=== PATIENT | male | born 1940 | race Caucasian/White ===

== ENCOUNTER → 2016-12-15 | Outpatient (CLI) | payer OTHER ==
[~2016-12-15] MED LIST: ACCUPRIL PO; ACTOS PO; AMARYL PO; ASPIRIN PO; BYETTA10 MCG/0.0 INJ; MAXZIDE 75/50 T1 TAB PO; METFORMIN PO; NEXIUM PO; PLAVIX PO; TOPROL XL PO; ZETIA PO
--- NOTE | ~2016-12-15 | CT4 ---
[facility] A Service of [facility] RADIOLOGY TEXT RESULTS PATIENT: TESSY JOSEPH SR LOCATION: [facility] : 40 UNIT #: [id number] AGE: [address]: Miguel A Bobo MD SEX: M ORDER DR: [id number] [facility] [address]. [place], [place] [address] [id number] O MR#: [id number] [facility] #: [id number] NAME: TESSY JOSEPH : 1940 SEX: M STUDY DATE/TIME: 12/15/2016 9:46 UNIT: [facility] ROOM: STUDY DESCRIPTION: CT Abd and Pelv Wo Cont Attending Physician: Miguel A Bobo M.D. Referring Physician: Miguel A Bobo M.D. Ordering Physician: Miguel A Bobo M.D. Primary Care Physician: Miguel A Bobo M.D. MEDICAL IMAGING REPORT This report is preliminary unless electronic signature is present EXAM CT abdomen and pelvis without contrast INDICATIONS Gross hematuria today. TECHNIQUE CT abdomen and pelvis was performed without contrast. Coronal and sagittal reformatted images were obtained. This CT exam was performed with one or more of the following radiation dose reduction techniques: automatic exposure control, adjustment of mA and/or kV according to patient size, and iterative reconstruction. COMPARISON STUDIES 11/08/2011. FINDINGS Lung bases are clear. There has been a previous cholecystectomy. The liver is unremarkable. The spleen is unremarkable. Stable cyst in the left kidney. The right kidney is unremarkable. No renal stone or hydronephrosis. Stable adrenal gland thickening bilaterally with nodularity. These likely reflect adenomas. The pancreas is unremarkable. PELVIS: There is some mild bladder wall thickening on the left, however this is unchanged since 2012 and may actually be decreased. No bladder stones. Bilateral fat-containing inguinal hernias. The colon is unremarkable. Normal appendix. There is no free fluid. Bone windows are unremarkable. IMPRESSION 1. No evidence of renal stone or hydronephrosis. [facility] A Service of [facility] RADIOLOGY TEXT RESULTS PATIENT: TESSY JOSEPH SR LOCATION: [facility] #: [id number] : 40 UNIT #: [id number] AGE: [address]: Miguel A Bobo MD SEX: M ORDER DR: 2. There is some very mild thickening along the left side of the urinary bladder, however this is unchanged be dating back to 2011. 3. Cholecystectomy. Findings were discussed with Dr. Bobo at the time f the dictation. Dictated by... Leon Davenport M.D. THIS IS AN ELECTRONICALLY VERIFIED REPORT Leon Davenport M.D. at 12/17/2016 7:51 AM ARS/pcl TD: 12/15/2016 11:55 JOB #: [id number] MEDICAL IMAGING REPORT Page 1 of 1 COPY
== END | disposition home or self-care (01) ==
LOC: CCAT 09:26
DX: R31.0 Gross hematuria (principal); N32.89 Other specified disorders of bladder; Z90.49 Acquired absence of other specified parts of digestive tract
CPT/HCPCS: 74176